=== PATIENT | male | born 1970 | race Caucasian/White ===

== ENCOUNTER 2019-06-12 17:32 | Inpatient (IN) | payer MEDICAID ==
[~2019-06-12] VITALS: Ht 177.8 cm; Wt 82.5 kg
--- NOTE | ~2019-06-12 | HEMODYNAMI ---
PATIENT:GARY MORALES MEDICAL RECORD: [id number] : 74 [id number] ADMISSION DATE: 06/12/19 Generatedon:06/12/201919:04 Patient name: GARY MORALES Patient #: [id number] SSN: [id number] : 1970 Date of study: 06/12/2019 Page: Of Hemodynamic Procedure Report Patient Data Patient Demographics Procedure consent was obtained First Name: GARY Gender: Male Last Name: CARMEN : 1970 Patient #: [id number] Age: 48 year(s) Race: SSN: [id number] Additional ID: [id number] Contact details Address: [facility] NO KNOWN ADDRESS State: [place] City: [facility] Zip code: [address] Past Medical History Allergies Allergen Reaction Date Comments Reported Other allergy 06/04/2019 PCN, SHRIMP Other allergy 06/12/2019 PCN, shrimp Admission Admission Data Admission Date: 06/12/2019 Admission Time: 17:32 Arrival Date: 06/12/2019 Arrival Time: 0:00 Admit Source: Other [facility] #: [id number] Room #: [facility] Height (in.): 69.69 BSA: 1.96 (m2) Height (cm.): 177 BMI: 25.22 (kg/m2) Weight (lbs.): 174.17 Weight (kg.): 79 Lab Results Lab Result Date: 06/12/2019 Lab Result Time: 0:00 CBC Name Units Result Min Max Hemoglobin g/dl 12.4 *-(----)-- 13.5 17.5 Procedure Procedure Types Cath Procedure Diagnostic Procedure Sedation Charges Moderate Sedation up to 15 minutes PCI Procedure AMI/SVG/PLANT HEALTH CARE TECHNICIAN PTCA or Stent AMI-BMS/CORRIEN Initial SVG-BMS/CORRINE Additional Hemochron ACT Test Procedure Description Procedure Date Procedure Date: 06/12/2019 Procedure Start Time: 18:35 Procedure End Time: 18:52 Procedure Staff Name Function Agustin Holland MD Performing Physician Jory Aldrich RT Monitor Sriram Genao RN Nurse Tiara Gomes RT Scrub Procedure Data Cath Procedure Fluoroscopy Diagnostic fluoroscopy Total fluoroscopy Time: 2.3 time: 2.3 min min Contrast Material Contrast Material Type Amount (ml) Isovue 300 56 Entry Location Entry Primary Successful Side Size Upsize Upsize Entry Closure Succes sful Closure Location (Fr) 1 (Fr) 2 (Fr) Remarks Device Remarks Femoral Right 6 Fr Exoseal artery Short Estimated blood loss: 10 ml Procedure Complications No complications Procedure Medications Medication Administration Route Dosage Heparin Bolus I.V. 5000 units Oxygen etCO2 Nasal cannula 2 l/min Lidocaine 2% added to field 20 Heparin Flush Bag added to field 2 bags (1000units/500ml NS) 0.9% NaCl I.V. 100 ml/hr Benadryl I.V. 50 mg Solumedrol I.V. 125 mg Integrilin (Bolus I.V. 7.3 ml 2mg/ml) Integrilin (Bolus I.V. 7.3 ml 2mg/ml) Integrilin Drip I.V. drip 6.4 ml/hr (75mg/100ml) Plavix P.O. 600 mg Versed I.V. 2 mg Fentanyl I.V. 100 mcg Hemodynamics Rest BSA: 1.96 (m2) O2 Consumption: Estimated: 243.63 (ml/min) O2 Consumption indexed : Estimated:124.3 (ml/min/m) Heart Rate: 80 (bpm) Snapshots Pre Cath Intra NCS Post Cath Vital Signs Time Heart Resp SPO2 etCO2 NIBP (mmHg) Rhythm Pain Sedation Rate (ipm) (%) (mmHg) Status Level (bpm) 18:31:33 78 25 96 35.1 122/89(100) NSR 0 (11) 10(A) , No pain 18:35:41 71 15 96 36.6 123/82(96) NSR 0 (11) 10(A) , No pain 18:39:49 73 20 97 44.2 126/88(109) NSR 0 (11) 10(A) , No pain 18:43:55 76 16 99 41.1 142/93(115) NSR 0 (11) 10(A) , No pain 18:48:06 75 15 100 38.8 145/92(114) NSR 0 (11) 10(A) , No pain 18:52:18 79 20 99 24.4 135/98(120) NSR 0 (11) 10(A) , No pain Medications Time Medication Route Dose Verified Delivered Reason Notes Effectiveness by by 18:26:29 Benadryl I.V. 50 mg Agustin Buffie used for Amalia Genao RN procedure 18:27:18 Oxygen etCO2 2 Augstin Bhatia used for Nasal l/min Amalia Genao RN procedure cannula 18:27:24 Lidocaine 2% added 20ml Agustin Velez for local to vial Amalia Holland MD anesthetic field 18:27:30 Heparin Flush added 2 Agustin Agustin used for Bag to bags Amalia Holland MD procedure (1000units/500ml field NS) 18:27:38 0.9% NaCl I.V. 100 Agustin Buffsd Per physician ml/hr Amalia Genao RN 18:28:37 Solumedrol I.V. 125 Agustin Bhatia Per physician mg Amalia Genao RN 18:31:35 Versed I.V. 2 mg Agustin Bhatia for sedation Amalia Genao RN 18:31:46 Fentanyl I.V. 100 Agustin Bhatia for sedation mcg Amalia Genao RN 18:35:20 Heparin Bolus I.V. 5000 Agustin Bhatia for verif ied units Amalia Genao RN anticoagulation with dr holland 18:36:30 Integrilin I.V. 7.3 Agustin Bhatia for waste d (Bolus 2mg/ml) ml Amalia Genao RN antiplatelet 2.7 ml therapy of vial 18:42:07 Integrilin I.V. 7.3 Agustin Bhatia for waste d (Bolus 2mg/ml) ml Amalia Genao RN antiplatelet 2.7 ml therapy of vial 18:48:45 Integrilin Drip I.V. 6.4 Agustin Bhatia for renal (75mg/100ml) drip ml/hr Amalia Genao RN antiplatelet dose. therapy 18:52:48 Plavix P.O. 600 Agustin Bhatia for mg Amalia Genao RN antiplatelet therapy Procedure Log Time Note 18:10:51 Admit Source: Other 18:10:54 Arrival Date: 06/12/2019 12:00:00 AM 18:11:06 Patient Height : 69.69 inches 18:11:10 Patient Weight : 174.17 lbs 18:11:50 Lab Result : Hemoglobin 12.4 g/dl 18:12:05 Procedure type changed to Cath procedure, Diagnostic procedure, Sedation Charges, Moderate Sedation up to 15 minutes, PCI procedure, AMI/SVG/PLANT HEALTH CARE TECHNICIAN PTCA or Stent, AMI-BMS/CORRINE Initial, SVG-BMS/CORRINE Additional, Hemochron ACT Test 18:12:42 Procedure Status Emergent Heart Cath (AMI). 18:12:46 Sriram Genao RN sent for patient. Start room use. 18:12:48 Time tracking: Call back (After hours or weekends) 18:12:53 Plan of Care:Hemodynamics will remain stable., Cardiac rhythm will remain stable., Comfort level will be maintained., Respiratory function will remain adequate., Patient/ family verbilizes understanding of procedure., Procedure tolerated without complication., Recovers from procedure without complications.. 18:18:58 Patient arrives emergently. 18:19:02 Signed procedure consent form obtained from patient. 18:19:03 Warm blankets applied, and franky hugger turned on for patient comfort. 18:19:03 Correct patient and procedure confirmed by team. 18:19:04 ECG and BP/O2 sat monitors applied to patient. 18:19:10 H&P Date Dictated: 06/12/2019 Emergent; H&P N/A. 18:19:12 Pre-procedure instructions explained to patient. 18:19:16 Family in waiting room. 18:19:18 Patient NPO since Midnight. 18:19:40 Patient allergic to Other allergyPCN, shrimp 18:19:48 Is patient on blood thinner?Yes 18:19:52 ACC The patient was administered the following blood thiners within the last 24 hours: ACCPlavix 18:21:20 Patient diabetic? Yes. 18:21:23 If diabetic: On Metformin? Yes 18:21:31 Snore? Yes 18:21:34 Sleep apnea? No 18:21:43 Dentures? No ? 18:23:12 3a) 45-59 Moderately reduced kidney function. 18:23:16 Maximum allowable contrast dose (3.7 X eGFR X 0.75)147 ml. 18:23:21 Sedation plan: IV Moderate Sedation Medication:Versed, Fentanyl 18:23:25 Fire Safety Assessment: A--An alcohol-based skin anteseptic being used preoperatively., C--Open oxygen or nitrous oxide is being used., D--An ESU, laser, or fiber-optic light is being used. 18:26:29 Benadryl 50 mg I.V. was administered by Sriram Genao RN; used for procedure; Verbal order read back and verified. 18:27:18 Oxygen 2 l/min etCO2 Nasal cannula was administered by Sriram Genao RN; used for procedure; Verbal order read back and verified. 18:27:24 Lidocaine 2% 20ml vial added to field was administered by Agustin Holland MD; for local anesthetic; Verbal order read back and verified. 18:27:30 Heparin Flush Bag (1000units/500ml NS) 2 bags added to field was administered by Agustin Holland MD; used for procedure; Verbal order read back and verified. 18:27:38 0.9% NaCl 100 ml/hr I.V. was administered by Sriram Genao RN; Per physician; Verbal order read back and verified. 18:28:37 Solumedrol 125 mg I.V. was administered by Sriram Genao RN; Per physician; Verbal order read back and verified. 18:30:01 Lab results completed and on chart. 18:30:05 Right groin area was prepped with chlora-prep and draped in sterile fashion 18:30:08 Alarms reviewed by R. N. 18:30:08 Sharps counted by scrub and verified by R.N. 18:30:10 Physician arrived 18:30:10 --------ALL STOP TIME OUT------ 18:30:15 Final Timeout: patient, procedure, and site verified with staff and physician. All members of the team are in agreement. 18:30:18 Right groin site verified by team. 18:30:24 Physical assessment completed. ASA score P 3 - A patient with severe systemic disease as per Agustin Holland MD. 18:30:34 Vital chart was started 18:30:36 Baseline sample Acquired. 18:30:41 Rhythm: sinus rhythm 18:30:43 Full Disclosure recording started 18:30:57 Use device set Femoral Dx 18:31:35 Versed 2 mg I.V. was administered by Buffie Genao RN; for sedation; Verbal order read back and verified. 18:31:46 Fentanyl 100 mcg I.V. was administered by Sriram Genao RN; for sedation; Verbal order read back and verified. 18:34:53 Procedure started. 18:35:08 Local anesthetic to right femoral artery with Lidocaine 2% by Agustin Holland MD.INITIAL ACCESS ONLY 18:35:17 A 6 Fr Short sheath was inserted into the Right Femoral artery 18:35:20 Heparin Bolus 5000 units I.V. was administered by Sriram Genao RN; for anticoagulation; verified with dr holland Verbal order read back and verified. 18:35:22 J wire advanced. 18:35:40 ACIST Syringe (48338) opened to sterile field. 18:35:40 Bag Decanter (2002S) opened to sterile field. 18:35:41 Medline Cath Pack ([id number]) opened to sterile field. 18:35:42 ACIST Hand Control (52185) opened to sterile field. 18:35:42 ACIST Manifold (22070) opened to sterile field. 18:35:42 DIAGNOSTIC Multipack 5Fr catheter set (SL4688) opened to sterile field. 18:35:44 Tegaderm 4 x 4 (1626W) opened to sterile field. 18:35:46 EMERALD Guide Wire (502-933) opened to sterile field. 18:35:47 SHEATH 6FR Rowley (LPE401) opened to sterile field. 18:35:48 INFLATOR Merit BasixCompak (IL7593) opened to sterile field. 18:35:48 CHOICE PT Extra Support 182cm wire ([id number]) opened to sterile field. 18:36:30 Integrilin (Bolus 2mg/ml) 7.3 ml I.V. was administered by Sriram Genao RN; for antiplatelet therapy; wasted 2.7 ml of vial Verbal order read back and verified. 18:37:00 GUIDE 6FR XBLAD 3.5 catheter ([id number]) opened to sterile field. 18:37:15 6 Fr xblad 3.5 guide catheter was inserted over the wire 18:37:20 choice pt wire advanced. 18:37:34 CHOICE PT Extra Support 182cm wire ([id number]) opened to sterile field. 18:38:47 First choice pt down Ramus 18:38:55 choice pt wire advanced. 18:39:25 2nd wire down LAD 18:40:03 Inflate balloon Inflation number: 1 A EUPHORA 2.5 x 20 Balloon ([id number]) was prepped and advanced across the Mid LAD 100, then inflated to 17 MAC for 0:10 (min:sec) . 18:40:24 Inflation number: 2 The EUPHORA 2.5 x 20 Balloon ([id number]) was reinflated across the Mid LAD , to 17 MAC for 0:05 (min:sec) . 18:42:07 Integrilin (Bolus 2mg/ml) 7.3 ml I.V. was administered by Sriram Genao RN; for antiplatelet therapy; wasted 2.7 ml of vial Verbal order read back and verified. 18:42:11 Balloon removed over the wire. 18:42:29 Place stent Inflation Number: 3 A ERICA RX 2.5 x 30 stent ([id number]) was prepped and advanced across the Mid LAD 100. The stent was deployed at 11 MAC for 0:08 (min:sec) 0. 18:43:47 Inflation number: 1 The stent balloon was then re-inflated across the Ramus 90 to 17 MAC for 0:06 (min:sec) 0. 18:43:55 Balloon removed over the wire. 18:46:38 Place stent Inflation Number: 2 A INTEGRITY RX 2.5 x 26 stent ([id number]) was prepped and advanced across the Ramus 0. The stent was deployed at 0 MAC for 0:00 (min:sec) . 18:46:51 Inflation number: 3 The stent balloon was then re-inflated across the Ramus 90 to 17 MAC for 0:00 (min:sec) . 18:47:34 EXOSEAL 6Fr (EX600) opened to sterile field. 18:48:24 Wire removed. 18:48:25 Guide catheter removed. 18:48:37 Sheath removed intact; hemostasis achieved with Exoseal to the Right Femoral artery. 18:48:45 Integrilin Drip (75mg/100ml) 6.4 ml/hr I.V. drip was administered by Sriram Genao RN; for antiplatelet therapy; renal dose. Verbal order read back and verified. 18:49:17 Procedure ended.(Physican Out) 18:50:07 Fluoroscopy time 02.30 minutes. 18:50:13 Contrast amount:Isovue 300 56ml. 18:50:16 Maximum allowable dose exceeded? No. 18:50:18 Sharps counted by scrub and verified by R.N. 18:50:19 Insertion/operative site no bleeding no hematoma. 18:50:24 Post right femoral artery:stable 18:50:26 Post Procedure Pulses reassessed and unchanged 18:50:29 Post-procedure physical assessment completed. ASA score P 3 - A patient with severe systemic disease as per Agustin Holland MD. 18:50:33 Post procedure rhythm: unchanged. 18:50:36 Estimated blood loss: 10 ml 18:50:37 Post procedure instruction explained to patient.Patient verbalizes understanding. 18:51:53 Procedure and supply charges have been captured, reviewed, submitted and are correct. 18:52:37 Procedure Complication : No complications 18:52:40 Vital chart was stopped 18:52:44 [facility] Findings: MVD- PCI performed (see procedure note) 18:52:46 Operative report dictated upon procedure completion. 18:52:47 See physician's report for complete and final results. 18:52:48 Plavix 600 mg P.O. was administered by Sriram Genao RN; for antiplatelet therapy; Verbal order read back and verified. 18:52:53 Patient transfered to [facility] with Bed. 18:52:58 Procedure ended. 18:52:58 Full Disclosure recording stopped 18:53:01 End room use (Document Last) 18:53:22 ACC-PCI Only Patient was given prescriptions, or instructed by Agustin Holland MD to start/continue the following medications upon discharge: Plavix 18:54:26 ACT drawn and resulted at 237 seconds. (normal therapeutic range 180-240 seconds). Intervention Summary Intervention Notes Time ActionType Lesion and Equipment Used Action# Pressure Duration Attributes 18:40:03 Inflate Mid LAD EUPHORA 2.5 x 1 17 00:10 balloon 20 Balloon ([id number]) 18:40:24 Reinflate Mid LAD EUPHORA 2.5 x 2 17 00:06 balloon 20 Balloon ([id number]) 18:42:29 Place stent Mid LAD ERICA RX 2.5 x 3 11 00:08 30 stent ([id number]) 18:43:47 Reinflate Ramus ERICA RX 2.5 x 1 17 00:06 stent 30 stent balloon ([id number]) 18:46:38 Place stent Ramus INTEGRITY RX 2 0 00:00 2.5 x 26 stent ([id number]) 18:46:51 Reinflate Ramus INTEGRITY RX 3 17 00:00 stent 2.5 x 26 stent balloon ([id number]) Device Usage Item Name Manufacture Quantity Catalog Number Hospital Part Current M inimal Lot# / Charge Number Stock Stock Serial# Code ACIST Syringe Acist 1 12622 357389 018877 907957 2 0 (70802) Medical Systems Inc Bag Decanter Microtek 1 2001S 820124 00992 809214 5 () Medical Inc. Medline Cath Medline 1 [id number] 244410 23180 335350 5 Pack ([id number]) ACIST Hand Acist 1 65999 495791 122028 668413 5 Control Medical (94365) Systems Inc ACIST Manifold Acist 1 51877 224156 631651 157068 5 (86278) Medical Systems Inc DIAGNOSTIC Cardinal 1 LL3523 350730 06455 026157 3 0 Multipack 5Fr Health catheter set (AZ7471) Tegaderm 4 x 4 3M 1 1626W 022728 689194 516428 5 (1626W) EMERALD Guide Cardinal 1 502-455 739526 474470 815233 5 Wire (502-455) Health SHEATH 6FR Terumo 1 JLW843 707762 991609 557852 4 0 Rowley (YQV557) INFLATOR Merit Merit 1 QS1058 934055 040136 094476 1 5 DermTech International (WN7889) CHOICE PT Rugby 2 [id number] 238452 660320 129482 5 Extra Support Scientific 182cm wire ([id number]) GUIDE 6FR Cardinal 1 59435778 850727 989681 053911 1 0 XBLAD 3.5 Health catheter (34655352) EUPHORA 2.5 x Medtronic 1 [id number] 478759 836308 141871 5 [id number] 20 Balloon ([id number]) ERICA RX 2.5 x Medtronic 1 [id number] 676475 1230449 473471 5 [id number] 30 stent ([id number]) INTEGRITY RX Medtronic 1 [id number] 788427 980259 671745 5 [id number] 2.5 x 26 stent ([id number]) EXOSEAL 6Fr Cardinal 1 EX600 015624 888337 501606 1 0 (EX600) Health Signature Audit Altus Stage Time Signature Unsigned Intra-Procedure 06/12/2019 Jory Aldrich 7:03:31 PM RT(R) Intra-Procedure 06/12/2019 Sriram Genao RN 7:04:06 PM Intra-Procedure 06/12/2019 Agustin Holland 7:04:31 PM [facility] [address] [facility] [place] [address]
[~2019-06-12 17:32] MED LIST: ASPIRIN81 MG PO; COREG 3.1253.125 MG PO; GLUCOPHAGE1000 MG PO; LISINOPRIL20 MG PO; PLAVIX75 MG PO
[2019-06-12 17:51] VITALS: BP 98/61
[2019-06-12 17:59] LABS: BASOPHILS 0.1 % (0-2); EOSINOPHILS 0.7 % (0-7); HEMOGLOBIN 12.4 g/dL (13.5-17.5); IMMATURE GRANULOCYTES 0.3 % (0-5); LYMPHOCYTES 13.9 % (15-50); MCH 28.7 pg (26.0-34.0); MCHC 34.4 g/dL (31.0-37.0); MCV 83.3 fL (80.0-100.0); MEAN PLATELET VOLUME 9.5 fL (7.4-10.4); MONOCYTES 6.3 % (2-11); NEUTROPHILS 78.7 % (40-80); RBC 4.32 10x6/uL (4.20-6.10); RDW 12.6 % (11.5-14.5); WBC 15.7 10x3/uL (4.8-10.8)
[2019-06-12 18:01] LABS: PLATELET COUNT 271 10x3/uL (130-400)
[2019-06-12 18:10] LABS: CALC OSMOLALITY 283 mosm/kg (275-300); CALCIUM 8.3 mg/dL (8.5-10.1); CHLORIDE - SERUM 104 mmol/L (98-107); CREATININE - SERUM 1.5 mg/dL (0.6-1.3); POTASSIUM - SERUM 4.3 mmol/L (3.5-5.1); SODIUM 136 mmol/L (136-145); UREA NITROGEN 23 mg/dL (7-18); eGFR NON AFRICAN AMERICAN 53 mL/min (90-120)
[2019-06-12 18:13] LABS: APTT 33.6 SECONDS (22.8-39.4); INR 1.05 (0.85-1.17); PROTIME 13.6 SECONDS (11.6-15.0)
[2019-06-12 18:14] LABS: GLUCOSE 235 mg/dL (74-106)
--- NOTE | 2019-06-12 18:23 | NUR ---
TO WIRE TAPER VIA STRETCHER
[2019-06-12 18:31] LABS: ALBUMIN 2.8 g/dL (3.4-5.0); ALKALINE PHOSPHATASE 46 U/L (30-120); ALT (SGPT) 46 U/L (10-68); BILIRUBIN - TOTAL 0.28 mg/dL (0.2-1.3); CKMB 91.1 U/L (0.0-3.6); CREATINE KINASE 636 UL (21-232); MAGNESIUM - SERUM 1.3 mg/dL (1.8-2.4); PROTEIN - SERUM 6.6 g/dL (6.4-8.2)
[2019-06-12 18:34] LABS: TROPONIN-I 33.558 ng/mL (0.000-0.060)
[2019-06-12 18:51] LABS: LDL-HDL RATIO 3.1 ratio (1.5-3.5)
--- NOTE | 2019-06-12 20:13 | NUR ---
RECEIVED REPORT FROM GERARDO BOWMAN IN MEDICAL CHIEF TECHNICIAN. RECIEVED TO FLOOR ON STRETCHER. ALERT AND ORIENTED X4. BEDFAST AT THIS TIME. PT VOICED UNDERSTANDING. DSG TO RIGHT GROIN CDI. INTEGRLIN CONT TO INFUSE AT 6.4CC/HR. 02@ 2 LITER SPER N/C. IV TO LEFT AC WITH NS AT 100CC/HR. REQUESTED A SANDWICH BOX. ATE 100%. DENIES ANY OTHER NEEDS.ASSESSMENT COMPLETED AND STATES HE'S VERY TIRED. WILL RETURN AFTER HE HAS HAD S0ME. REST.
[2019-06-12 22:08] VITALS: BP 129/82; Ht 177.8 cm; Wt 82.5 kg
[2019-06-13] VITALS: BP 139/89
[2019-06-13 04:00] VITALS: BP 134/96
[2019-06-13 04:57] LABS: BASOPHILS 0 % (0-2); EOSINOPHILS 0 % (0-7); HEMATOCRIT 35.7 % (42.0-54.0); HEMOGLOBIN 12.1 g/dL (13.5-17.5); IMMATURE GRANULOCYTES 0.1 % (0-5); LYMPHOCYTES 6.4 % (15-50); MCH 28.3 pg (26.0-34.0); MCHC 33.9 g/dL (31.0-37.0); MCV 83.4 fL (80.0-100.0); MEAN PLATELET VOLUME 9.9 fL (7.4-10.4); MONOCYTES 1.1 % (2-11); NEUTROPHILS 92.4 % (40-80); PLATELET COUNT 228 10x3/uL (130-400); RBC 4.28 10x6/uL (4.20-6.10); RDW 12.7 % (11.5-14.5)
[2019-06-13 05:04] LABS: WBC 7.3 10x3/uL (4.8-10.8)
[2019-06-13 05:32] LABS: ALBUMIN 2.4 g/dL (3.4-5.0); ANION GAP 10.5 mmol/L (8-16); BILIRUBIN - TOTAL 0.44 mg/dL (0.2-1.3); CALCIUM 8.6 mg/dL (8.5-10.1); CARBON DIOXIDE 28.8 mmol/L (21.0-32.0); CREATININE - SERUM 1.5 mg/dL (0.6-1.3); POTASSIUM - SERUM 5.3 mmol/L (3.5-5.1); PROTEIN - SERUM 6.4 g/dL (6.4-8.2)
--- NOTE | 2019-06-13 07:15 | NUR ---
RECEIVED PT IN BED EYES CLOSED RESP UNLABORED SKIN W/D COLOR WNL NAD NOTED
[2019-06-13 09:52] VITALS: BP 124/88
[2019-06-13 12:00] VITALS: BP 133/60
--- NOTE | 2019-06-13 15:50 | MORECARE ---
CASE MANAGEMENT DISCHARGE SUMMARY PATIENT: GARY MORALES UNIT: [id number] ADM DATE: 06/12/19 AGE: 48 : 74 SEX: M ROOM/BED: D.2124 AUTHOR: MAYNOR PÉREZ PHYSICIAN: REFERRING PHYSICIAN: JUDY BARKER MD DATE OF SERVICE: 06/13/19 Discharge Plan Patient Name: GARY MORALES [facility] [facility] 1970 Planned Disposition: Anticipated Discharge Date: Discharge Date: Expected LOS: 0 Initial Reviewer: [email or web address] Initial Review Date: 06/13/2019 Generated: 06/13/19 4:50 pm Patient Name: GARY MORALES Page 86085 at 1550 All edits/amendments must be made on the electronic document DICTATION DATE: 06/13/19 1550 SUPERVISOR CONTACT LENS: JAX 06/13/19 1550 RPT#: [id number] DC DATE: STATUS: REG CLI [facility] [address] [place] [address] END OF REPORT
--- NOTE | 2019-06-13 15:58 | MORECARE ---
CASE MANAGEMENT DISCHARGE SUMMARY PATIENT: GARY MORALES UNIT: [id number] ADM DATE: 06/12/19 AGE: 48 : 74 SEX: M ROOM/BED: D.2124 AUTHOR: MAYNOR PÉREZ PHYSICIAN: REFERRING PHYSICIAN: JUDY BARKER MD DATE OF SERVICE: 06/13/19 Discharge Plan Patient Name: GARY MORALES Facility: [facility]:[place] : 1970 Planned Disposition: Anticipated Discharge Date: Discharge Date: Expected LOS: 0 Initial Reviewer: [email or web address] Initial Review Date: 06/13/2019 Generated: 06/13/19 4:57 pm Comments DCP- Discharge Planning Updated by [email or web address]: Klaudia Garcia on 06/13/19 2:[address] Patient Name: GARY MORALES Admission Status: ER Accout number: [id number] Admission Date: 06-12-2019 : 1970 Admission Diagnosis: Attending: SHARATH BARKER Current LOS: 1 Anticipated DC Date: Planned Disposition: Primary Insurance: UNINSURED DISCOUNT PLAN Discharge Planning Comments: CM MET WITH PATIENT TO DISCUSS DC PLANNING/NEEDS AFTER OBTAINING VERBAL CONSENT. STATES NO MONEY UNTIL June AND NO INSURANCE UNTIL June. WILL NEED HELP GETTING DC MEDS. I AM TRYING TO FIND OUT IF HIS ARTEMIO IS ACTIVE IN ORDER TO SEE WHAT MEDS HE WILL NEED BEFORE THE . CM WILL FOLLOW. Felt Hat Steamer: Klaudia Garcia Last DP export: 06/13/19 2:50 p Patient Name: GARY MORALES Page 17702 at 1558 All edits/amendments must be made on the electronic document DICTATION DATE: 06/13/19 155 PROFESSOR OF COMMUNICATION: JAX 06/13/19 155 RPT#: [id number] DC DATE: STATUS: REG [facility] [address] [place] [address] END OF REPORT
[2019-06-13 17:04] VITALS: BP 144/86
[2019-06-13 20:00] VITALS: BP 137/69
[2019-06-14] VITALS: BP 124/82
[2019-06-14 04:00] VITALS: BP 112/68
[2019-06-14 08:36] VITALS: BP 106/68
--- NOTE | 2019-06-14 10:10 | HP ---
PATIENT: GARY BROWER MEDICAL RECORD: [id number] ACCOUNT: [id number] LOCATION:[address] : 74 ADMISSION DATE: 06/12/19 PCP: No PCP HISTORY AND PHYSICAL EXAMINATION DIAGNOSES: 1. Acute anterior myocardial infarction. 2. Coronary artery disease. 3. Recent PTCA and stent of LAD 1 week ago. 4. Hypertension. 5. Hyperlipidemia. HISTORY OF PRESENT ILLNESS: Mr. Brower presents with acute onset of chest discomfort today. He is status post PTCA and stent for a non-Q-wave myocardial infarction a week ago. He did not take any of his medications including the aspirin and Plavix. He now has ST elevation anteriorly. FAMILY HISTORY: Positive for premature coronary artery disease as well as hypertension. SOCIAL HISTORY: [place] in the [place] area. He does have a smoking history. Denies significant ETOH. REVIEW OF SYSTEMS: The patient reports easy bruising but reports no swollen glands. The patient reports no fever, no night sweats, no significant weight gain, no significant weight loss. No significant exercise tolerance. The patient reports no dry eyes, no irritation, no vision change. Patient reports no difficulty hearing and no ear pain. Patient reports no frequent nose bleeds or nose and sinus problems. Patient reports on arm pain on exertion. No shortness of breath while lying down. No history of heart murmur. Patient reports no cough, no wheezing or coughing up blood. Patient reports no abdominal pain, no vomiting. Normal appetite. No diarrhea and not vomiting blood. No nausea and no constipation. Patient reports no incontinence. No difficulty urinating. No hematuria. No increased frequency. Patient reports no muscle aches. No weakness, no arthralgias, no back pain. No swelling of the extremities. Patient reports no abnormal mole, no jaundice, no rashes. Reports no loss of consciousness. No weakness and no numbness. No seizures, dizziness, or headaches. The patient reports no depression, no sleep disturbance, feeling safe in a relationship and no alcohol abuse. Patient reports on fatigue. Reports no runny nose or sinus pressure. No itching, no hives, and no frequent sneezing. PHYSICAL EXAMINATION: CONSTITUTIONAL/GENERAL APPEARANCE: Well nourished, well developed, appears stated age. EYES: Lids and conjunctivae noninjected. No discharge. No pallor. ENT: Lips within normal limit. No cyanosis. No pallor. NECK: Carotid arteries, bilateral normal upstroke. No bruits. No thrills. No jugular venous pressure or distention. CERVICAL LYMPH NODES: Nontender. Nonenlarged. THYROID: Not enlarged. No nodules. CARDIOVASCULAR: Precordial exam, nondisplaced. No heaves or pericardial thrills. Rate and rhythm, regular. Heart sounds, normal S1, normal S2. No S3, no gallop, no rub. Systolic murmur, not heard. Diastolic murmur, not heard. RESPIRATORY: Respiratory effort, unlabored. Normal curvature. No thoracic HISTORY AND PHYSICAL [id number] CARMEN,GARY deformity. No chest wall tenderness. Percussion, resonant. Auscultation, clear. No wheezes, no rales, no rhonchi. ABDOMEN: Soft, nondistended, nontender. No abdominal pain, no vomiting and normal appetite. MUSCULOSKELETAL: No joint tenderness, normal gait, normal tone. SKIN: Warm and dry. OVERALL IMPRESSION: Acute anterior myocardial infarction. Most likely has acute closure secondary to noncompliance with Plavix. We will proceed with coronary angiography. Further care depends upon findings of the angiography. TRANSINT:[id number] Voice Confirmation ID: [id number] DOCUMENT ID: [id number] JUDY BARKER MD at 1010 CC: [id number] DICTATION DATE: 06/12/19 185 TUB PULLER: 06/12/19 2301 ADM IN [facility] [address] [place] [address]
--- NOTE | 2019-06-14 10:53 | NUR ---
DR BARKER REPORTS PT TO D/C PLAVIX. HE GAVE PT SAMPLES OF BRILINTA TO TAKE DAILY.
[2019-06-14] MEDS ORDERED: BRILINTA90 MG PO (10:54)
--- NOTE | 2019-06-14 10:55 | MORECARE ---
CASE MANAGEMENT DISCHARGE SUMMARY PATIENT: GARY MORALES UNIT: [id number] ADM DATE: 06/12/19 AGE: 48 : 74 SEX: M ROOM/BED: D.9214 AUTHOR: ELISADOC PHYSICIAN: REFERRING PHYSICIAN: JUDY BARKER MD DATE OF SERVICE: 06/14/19 Discharge Plan Patient Name: GARY MORALES Facility: [facility]:[place] : 1970 Planned Disposition: Home Anticipated Discharge Date: Discharge Date: Expected LOS: 0 Initial Reviewer: [email or web address] Initial Review Date: 06/13/2019 Generated: 06/14/19 11:54 am Comments DCP- Discharge Planning Updated by [email or web address]: Klaudia Garcia on 06/14/19 9:[address] Patient Name: GARY MORALES Admission Status: ER Accout number: [id number] Admission Date: 06-12-2019 : 1970 Admission Diagnosis: Attending: SHARATH BARKER Current LOS: 2 Anticipated DC Date: Planned Disposition: Home Primary Insurance: UNINSURED DISCOUNT PLAN Discharge Planning Comments: I SPOKE WITH MED DATA TO CHECK STATUS OF HIS ARTEMIO. IT IS STILL PENDING BUT LOOKS LIKE SHOULD BE ACTIVE IN APPROX 1 TO 2 WEEKS AND SHOULD RETRO TO May. DR. BARKER IS SENDING HIM WITH SAMPLES OF BRILINTA UNTIL HIS ARTEMIO KICKS IN. CM WILL FOLLOW AND ASSIST NEEDED. Door To Door Lead Generation: Klaudia Garcia DCP- Discharge Planning Updated by [email or web address]: Klaudia Garcia on 06/13/19 2:[address] Patient Name: GARY MORALES Admission Status: ER Accout number: [id number] Admission Date: 06-12-2019 : 1970 Admission Diagnosis: Attending: SHARATH BARKER Current LOS: 1 Anticipated DC Date: Planned Disposition: Primary Insurance: UNINSURED DISCOUNT PLAN Discharge Planning Comments: CM MET WITH PATIENT TO DISCUSS DC PLANNING/NEEDS AFTER OBTAINING VERBAL CONSENT. STATES NO MONEY UNTIL June AND NO INSURANCE UNTIL June. WILL NEED HELP GETTING DC MEDS. I AM TRYING TO FIND OUT IF HIS ARTEMIO IS ACTIVE IN ORDER TO SEE WHAT MEDS HE WILL NEED BEFORE THE . CM WILL FOLLOW. [employer]: Klaudia FRANK export: 06/13/19 2:58 p Patient Name: GARY MORALES Page [id number] at 1055 All edits/amendments must be made on the electronic document DICTATION DATE: 06/14/19 1054 PEN RULER OPERATOR: JAX 06/14/19 1054 RPT#: [id number] DC DATE: STATUS: ADM IN [facility] [address] [place] [address] END OF REPORT
--- NOTE | 2019-06-14 16:50 | MORECARE ---
CASE MANAGEMENT DISCHARGE SUMMARY PATIENT: GARY MORALES UNIT: [id number] ADM DATE: 06/12/19 AGE: 48 : 74 SEX: M ROOM/BED: D.8584 AUTHOR: ELISA,DOC PHYSICIAN: REFERRING PHYSICIAN: JUDY BARKER MD DATE OF SERVICE: 06/14/19 Discharge Plan Patient Name: GARY MORALES Facility: [facility]:[place] : 1970 Planned Disposition: Home Anticipated Discharge Date: Discharge Date: Expected LOS: 0 Initial Reviewer: [email or web address] Initial Review Date: 06/13/2019 Generated: 06/14/19 5:50 pm Comments DCP- Discharge Planning Updated by [email or web address]: Klaudia Garcia on 06/14/19 3:[address] Patient Name: GARY MORALES Admission Status: ER Accout number: [id number] Admission Date: 06-12-2019 : 1970 Admission Diagnosis: Attending: SHARATH BARKER Current LOS: 2 Anticipated DC Date: Planned Disposition: Home Primary Insurance: UNINSURED DISCOUNT PLAN Discharge Planning Comments: I SPOKE WITH [facility] TO CHECK STATUS OF HIS ARTEMIO. IT IS STILL PENDING BUT LOOKS LIKE SHOULD BE ACTIVE IN APPROX 1 TO 2 WEEKS AND SHOULD RETRO TO May. DR. BARKER IS SENDING HIM WITH SAMPLES OF BRILINTA UNTIL HIS ARTEMIO KICKS IN. CM WILL FOLLOW AND ASSIST NEEDED. Fiberglasser: Klaudia Garcia Appended by Klaudia Garcia on 06/14/2019 16:43 GUEST ADVISOR: I SPOKE WITH PATIENT EARLY BECAUSE HE DIDN'T HAVE TRANSPORT TO [facility]. I GAVE HIM MY NUMBER WHEN HE DECIDED WHERE HE WANTS TO GO AND WE MAY PROVIDE TRANSPORT IF IT IS REASONABLE. I HAVE NOT HEARD FROM PATIENT. I REVISITED HIS ROOM AND HE IS NOT THERE AND HOUSE KEEPING IS CLEANING. DCP- Discharge Planning Updated by [email or web address]: Klaudia Garcia on 06/13/19 2:[address] Patient Name: GARY MORALES Admission Status: ER Accout number: [id number] Admission Date: 06-12-2019 : 1970 Admission Diagnosis: Attending: SHARATH BARKER Current LOS: 1 Anticipated DC Date: Planned Disposition: Primary Insurance: UNINSURED DISCOUNT PLAN Discharge Planning Comments: CM MET WITH PATIENT TO DISCUSS DC PLANNING/NEEDS AFTER OBTAINING VERBAL CONSENT. STATES NO MONEY UNTIL June AND NO INSURANCE UNTIL June. WILL NEED HELP GETTING DC MEDS. I AM TRYING TO FIND OUT IF HIS ARTEMIO IS ACTIVE IN ORDER TO SEE WHAT MEDS HE WILL NEED BEFORE THE . CM WILL FOLLOW. Fiberglasser: Klaudia Limon DP export: 06/14/19 9:55 a Patient Name: GARY MORALES Page [phone] at 1650 All edits/amendments must be made on the electronic document DICTATION DATE: 06/14/191649 ANIMAL THERAPIST: JAX 06/14/191649 RPT#: [id number] DC DATE: STATUS: ADM IN [facility] [address] [place] [address] END OF REPORT
--- NOTE | 2019-06-15 09:57 | MORECARE ---
CASE MANAGEMENT DISCHARGE SUMMARY PATIENT: GARY MORALES UNIT: [id number] ADM DATE: 06/12/19 AGE: 48 : 74 SEX: M ROOM/BED: D.1004 AUTHOR: ELISA,DOC PHYSICIAN: REFERRING PHYSICIAN: JUDY BARKER MD DATE OF SERVICE: 06/15/19 Discharge Plan Patient Name: GARY MORALES Facility: [facility]:[place] : 1970 Planned Disposition: Home Anticipated Discharge Date: 06/14/19 Discharge Date: 06/14/2019 Expected LOS: 2 Initial Reviewer: [email or web address] Initial Review Date: 06/13/2019 Generated: 06/15/19 10:56 am Comments DCP- Discharge Planning Updated by [email or web address]: Klaudia Gacria on 06/14/19 3:[address] Patient Name: GARY MORALES Admission Status: ER Accout number: [id number] Admission Date: 06-12-2019 : 1970 Admission Diagnosis: Attending: SHARATH BARKER Current LOS: 2 Anticipated DC Date: Planned Disposition: Home Primary Insurance: UNINSURED DISCOUNT PLAN Discharge Planning Comments: I SPOKE WITH [facility] DATA TO CHECK STATUS OF HIS ARTEMIO. IT IS STILL PENDING BUT LOOKS LIKE SHOULD BE ACTIVE IN APPROX 1 TO 2 WEEKS AND SHOULD RETRO TO May. DR. BARKER IS SENDING HIM WITH SAMPLES OF BRILINTA UNTIL HIS ARTEMIO KICKS IN. CM WILL FOLLOW AND ASSIST NEEDED. Tube Washer: Klaudia Garcia Appended by Klaudia Garcia on 06/14/2019 16:43 TIMBER BUCKER: I SPOKE WITH PATIENT EARLY BECAUSE HE DIDN'T HAVE TRANSPORT TO [facility]. I GAVE HIM MY NUMBER WHEN HE DECIDED WHERE HE WANTS TO GO AND WE MAY PROVIDE TRANSPORT IF IT IS REASONABLE. I HAVE NOT HEARD FROM PATIENT. I REVISITED HIS ROOM AND HE IS NOT THERE AND HOUSE KEEPING IS CLEANING. DCP- Discharge Planning Updated by [email or web address]: Klaudia Garcia on 06/13/19 2:[address] Patient Name: GARY MORALES Admission Status: ER Accout number: [id number] Admission Date: 06-12-2019 : 1970 Admission Diagnosis: Attending: TAUTH, SHARATH Current LOS: 1 Anticipated DC Date: Planned Disposition: Primary Insurance: UNINSURED DISCOUNT PLAN Discharge Planning Comments: CM MET WITH PATIENT TO DISCUSS DC PLANNING/NEEDS AFTER OBTAINING VERBAL CONSENT. STATES NO MONEY UNTIL June AND NO INSURANCE UNTIL June. WILL NEED HELP GETTING DC MEDS. I AM TRYING TO FIND OUT IF HIS ARTEMIO IS ACTIVE IN ORDER TO SEE WHAT MEDS HE WILL NEED BEFORE THE . CM WILL FOLLOW. Tube Washer: Klaudia Limon DP export: 06/14/19 3:50 p Patient Name: GARY MORALES Page [phone] at 0957 All edits/amendments must be made on the electronic document DICTATION DATE: 06/15/19955 NON DESTRUCTIVE TESTING SCIENTIST: JAX 06/15/19955 RPT#: [id number] DC DATE:06/14/19 STATUS: DIS IN [facility] [address] [place] [address] END OF REPORT
--- NOTE | 2019-06-15 11:54 | DS ---
PATIENT:GARY BROWER :74 MEDICAL RECORD: [id number] DISCHARGE SUMMARY ADMISSION DATE: 06/12/19 DISCHARGE DATE: 06/14/19 DISCHARGE DIAGNOSES: 1. Acute anterior myocardial infarction. 2. Plavix noncompliance. 3. Coronary artery disease. 4. Hypertension. 5. Hyperlipidemia. HOSPITAL COURSE: Mr. Brower presents with an acute anterior myocardial infarction. He did not obtain Plavix from his non-Q-wave myocardial infarction, PTCA stent of the LAD last week. He underwent repeat stenting of the LAD as well the ramus intermedius as the clot propagated into the ramus intermedius. He was discharged home with samples of Brilinta. He will follow up with [facility] as previously scheduled. TRANSINT:[id number] Voice Confirmation ID: [id number] DOCUMENT ID: [id number] JUDY BARKER MD at 1154 CC: [id number] DICTATION DATE: 06/14/19 1011 DOUGH MIXING MACHINE OPERATOR: 06/14/192058 DIS IN 06/14/19 [place] [address] [place] [address]
--- NOTE | 2019-06-15 11:54 | OP ---
PATIENT NAME: GARY MORALES MEDICAL RECORD: [id number] :74 LOCATION:D.M2 D.2124 ADMISSION DATE:06/12/19 SURGEON: JUDY BARKER MD DATE OF OPERATION: 06/12/2019 PROCEDURES: 1. PTCA and stent of LAD. 2. PTCA and stent of ramus intermedius of the left circumflex. 3. Left heart catheterization. 4. Selective coronary angiography. 5. Left ventriculogram. INDICATION: Acute anterior myocardial infarction. PROCEDURE IN DETAIL: After informed consent was obtained and after a detailed explanation of risks, benefits as well as alternative therapies, the patient elected to proceed with angiogram and angioplasty. The right femoral area was prepped and draped in normal sterile fashion. Right femoral artery was cannulated via modified Seldinger technique with placement of 6-Indonesian sheath. All catheters exchanged through this sheath. FINDINGS: The left ventriculogram was performed in a standard 30-degree WING view reveals preserved ejection fraction at 50%. SELECTIVE CORONARY ANGIOGRAPHY: 1. Left main is with no significant angiographic disease. 2. Left anterior descending is acutely 100% occluded at the site of previously placed stent with thrombus. 3. There is a large ramus intermedius actually larger than the LAD that has 80% to 90% stenosis, appears to have a thrombus burden as well from complication from the LAD. 4. Left circumflex elsewise has only mild irregularities, but no flow-limiting stenosis. 5. Right coronary artery has mild irregularities, but no flow-limiting stenosis. PTCA AND STENT OF THE LAD: The stent used was a 2.5 x 30-mm Guillermo. The result was 0% residual stenosis. PTCA AND STENT OF THE RAMUS INTERMEDIUS: The stent used was a 2.5 x 26-mm Integrity. Result was 0% residual stenosis. OVERALL IMPRESSION: Successful PTCA and stent of the ramus intermedius and LAD, both going from 90% to 100% initial stenosis with an acute myocardial infarction and acute thrombus burden to 0% residual stenosis. No further thrombus. TRANSINT:[id number] Voice Confirmation ID: [id number] DOCUMENT ID: [id number] OPERATIVE REPORT [id number] GARY MORALES JUDY BARKER MD at 6221 CC: [id number] DICTATION DATE: 06/12/191855 SHIRT FINISHER: 06/13/19 0423 DIS IN 06/14/19 [facility] [address], [facility]
== END 2019-06-14 16:53 | disposition home or self-care (01) | DRG 247 ==
LOC: D.M2 17:32 → D.CATH 17:32 → D.ER 17:32 → EDSTATUS 18:23 → D.M2 18:24 → D.CATH 18:25 → D.M2 18:25
PROVIDERS: Family Medicine; ADMIT Internal Medicine Interventional Cardiology; ATTEND Internal Medicine Interventional Cardiology
PROC: B2111ZZ Fluoroscopy of Multiple Coronary Arteries using Low Osmolar Contrast (ICD-10-PCS; 2019-06-12)
PROC: 4A023N7 Measurement of Cardiac Sampling and Pressure, Left Heart, Percutaneous Approach (ICD-10-PCS; 2019-06-12)
PROC: B2151ZZ Fluoroscopy of Left Heart using Low Osmolar Contrast (ICD-10-PCS; 2019-06-12)
PROC: 027034Z Dilation of Coronary Artery, One Artery with Drug-eluting Intraluminal Device, Percutaneous Approach (ICD-10-PCS; principal; 2019-06-12 18:12)
PROC: 02703DZ Dilation of Coronary Artery, One Artery with Intraluminal Device, Percutaneous Approach (ICD-10-PCS; 2019-06-12 18:12)
DX: I21.09 ST elevation (STEMI) myocardial infarction involving other coronary artery of anterior wall (principal); Z91.14 Patient's other noncompliance with medication regimen; I25.10 Atherosclerotic heart disease of native coronary artery without angina pectoris; I10 Essential (primary) hypertension; E78.5 Hyperlipidemia, unspecified